=== PATIENT | male | born 1985 | race Caucasian/White ===

== ENCOUNTER 2022-04-21 19:57 | Emergency (ER) | payer SELFPAY ==
[~2022-04-21] VITALS: Ht 172.7 cm; Wt 113.0 kg
[2022-04-21 20:38] VITALS: BP 117/79
== END 2022-04-21 21:15 | disposition left against medical advice (07) ==
LOC: ER 19:57
DX: F91.9 Conduct disorder, unspecified (principal)
CPT/HCPCS: 99283